=== PATIENT | female | born 1945 | race Caucasian/White ===

== ENCOUNTER 2018-09-30 13:30 | Inpatient (IN) | payer MEDICARE ==
[2018-10-05] MEDS ORDERED: FAMOTIDINE 20MG TABLET PO ONE (06:00)
[2018-10-05] MEDS ORDERED: CEFAZOLIN 1G VIAL IVP ONE (06:00)
[2018-10-05] MEDS ORDERED: WATER STERILE FOR INJECTION 20 ML VIAL MC ONE (06:00)
[2018-10-05] MEDS ORDERED: MECLIZINE 25 MG TABLET PO ONE (06:00)
[2018-10-05] MEDS ORDERED: METOCLOPRAMIDE 10 MG TABLET PO ONE (06:00)
[2018-10-05] MEDS ORDERED: CEFAZOLIN 2 Gram 2 GM/50 ML BAG IVPB SCH (06:00)
[2018-10-05] MEDS ORDERED: RINGERS SOLUTION,LACTATED 1,000 ML IV ONE ×2 (09:20→10:29)
[2018-10-05] MEDS ORDERED: ONDANSETRON HCL IV 4 MG/2 ML VIAL IVP PRN (12:00)
[2018-10-05] MEDS ORDERED: AL HYDROX/MAG HYDROX 30ML UD PO PRN (12:00)
[2018-10-05] MEDS ORDERED: ZOLPIDEM TARTRATE 5 MG TABLET PO PRN (12:00)
[2018-10-05] MEDS ORDERED: ACETAMINOPHEN 325 MG TAB PO PRN (12:00)
[2018-10-05] MEDS ORDERED: TRAMADOL HCL 50 MG TABLET PO PRN (12:00)
[2018-10-05] MEDS ORDERED: DIPHENHYDRAMINE HCL 25 MG CAPSULE PO PRN (12:00)
[2018-10-05] MEDS ORDERED: MAGNESIUM HYDROXIDE 30 ML UDC PO PRN (12:00)
[2018-10-05] MEDS ORDERED: HYDROMORPHONE HCL 2 MG/ML VIAL IV PRN (12:00)
[2018-10-05] MEDS ORDERED: SENNOSIDES/DOCUSATE SODIUM UD CAPSULE PO PRN (12:00)
[2018-10-05] MEDS ORDERED: NALOXONE 0.4 MG/1 ML VIAL IVP PRN (12:00)
[2018-10-05] MEDS ORDERED: METOCLOPRAMIDE HCL 10 MG/2 ML VIAL IVP PRN (12:00)
[2018-10-05] MEDS ORDERED: TRAZODONE 50 MG TABLET PO PRN (12:02)
[2018-10-05] MEDS ORDERED: ROPIVACAINE HCL (NAROPIN) /PF 5MG/ML 20ML VIAL IV ONE (13:48)
[2018-10-05] MEDS ORDERED: DEXAMETHASONE 4 MG/ML 1ML VIAL IVP ONE (13:48)
[2018-10-05] MEDS: OXYCODONE HCL/APAP 5MG/325MG TABLET PO PRN ×3 (13:49→19:58)
[2018-10-05] MEDS ORDERED: TRANEXAMIC ACID 1,000 MG in 0.9 % SODIUM CHLORIDE 100ML 100 ML IVPB ONE (14:00)
[2018-10-05] MEDS: RINGERS SOLUTION,LACTATED 1,000 ML IV SCH (14:38)
[2018-10-05] MEDS ORDERED: TRANEXAMIC ACID 1,000 MG/10 ML ML IV ONE (15:04)
--- NOTE | 2018-10-05 15:12 | Rehab Evaluation ---
Patient Information - Patient Information Diagnosis: OA R knee Ordered Treatment: OT Evaluate and Treat Status: Initial Evaluation Surgery: Yes (R TKA) Date of Surgery: 10/05/18 Past Medical/Surgical Hx: PAST MEDICAL/SURGICAL HISTORY Past Surgical History ARIEL AT AGE 26 HYST 1994 CTR C SCOPES PMH - Respiratory Hx Respiratory Disorders Yes Hx Pneumonia Yes: AGE 26 WITH PLEURISY PMH - Cardiovascular Hx Cardiovascular Disorders Yes Hx Deep Vein Thrombosis Yes: AT AGE 26 AFTER ARIEL AND PNEUMONIA Hx Irregular Heartbeat Yes: TACHYCARDIA ON MEDS WITH GOOD RESULTS Exercise Tolerance Good PMH - Neuro Hx Neurological Disorders Yes Hx Headaches Yes: OCCASSIONALLY PMH - GI Hx Gastrointestinal Disorders Yes Hx Pancreatitis Yes: AT AGE 26 WITH GALLBLADDER PROBLEMS PMH - Hx Genitourinary Disorders Yes Hx Bladder Problem Yes: URGENCY PMH - Endocrine Hx Endocrine Disorders Yes Hx Thyroid Disease Yes: HX OF GRAVES DISEASE HAD RADIATION PMH - Musculoskeletal Hx Musculoskeletal Disorders Yes Hx Arthritis Yes: RIGHT KNEE AND LOW BACK AND CERVICAL Hx Osteoporosis Yes: OSTEOPENIA PMH - Psych Hx Psychiatric Problems Yes Hx Anxiety Yes: R/T UPCOMING SX PMH - Hematology/Oncology Hx Hematology/Oncology No Disorders Premorbid Status: Detail (Pt was indep. with all I/ADLs prior to admit.) Social History: Detail (Pt lives with her grown daughter in a 2-story home with upstairs main bedroom and bathroom. There is 1 step to enter without a handrail. The bathroom is equipped with a tub/shower, shower chair, and hand- held shower hose. Pt reports she may have grab bar installed in the shower. She owns a FWW and single point cane. Pt plans to reside on main floor with half bathroom upon DC until she is able to negotiate stairs) Precautions: [place], Fall, Other (WBAT R LE) - Time With Patient Total Time Spent With Patient (Min): 14 (1 eval) Treatment Procedures: Detail (ot eval: low complexity) Subjective Information - Subjective Information Per Patient (Ok to see per PACO Dean. Pt agreeable to OT eval. Daughter present. ) Objective Data - Pain Pain Present: Yes Pain Scale Used: Numeric (1 - 10) (2/10 R knee) - Mental Status Patient Orientation: Oriented x3 - Visual Perception Appears within normal limits for therapeutic activities - ROM Within normal limits - Strength/Tone Within normal limits - Coordination Appears within normal limits for therapeutic activities - Bed Mobility Independent (supine >< EOB) - Transfers Independent (sit >< stand from low surfaces with FWW) - Balance Balance Sitting: Good Balance Standing: Good - Sensation Intact - Gait Detail (Functional ambulation within bedroom with FWW and supervision) - ADL's/IADL's Detail (OT educ. Pt on adaptive tech for LB dressing, kitchen, laundry, and bathroom safety, Pt verbalizes and demos mod indep.) Therapy Assessment - Therapy Assessment Detail (Pt demos safety and mod I with LB dressing and verbalizes safe tech for home tasks. Rec. DC home with daughter assist PRN upon medical stability.) Problem List - Problem List Occupational Therapy Problem List: Detail (No further inpatient OT needs identified. MA inpatient OT services.) Goals - Goals Occupational Therapy Goals: No further inpatient OT needs/goals identified. MA inpatient OT services. Prognosis - Prognosis Good Plan - Plan Occupational Therapy Plan: No further inpatient OT needs identified. MA inpatient OT services. Thank you for this referral.
--- NOTE | 2018-10-05 15:22 | Rehab Evaluation ---
Patient Information - Patient Information Diagnosis: OA R knee Ordered Treatment: OT Evaluate and Treat Surgery: Yes (R TKA) Date of Surgery: 10/05/18 Past Medical/Surgical Hx: PAST MEDICAL/SURGICAL HISTORY Past Surgical History ARIEL AT AGE 26 HYST 1994 CTR C SCOPES PMH - Respiratory Hx Respiratory Disorders Yes Hx Pneumonia Yes: AGE 26 WITH PLEURISY PMH - Cardiovascular Hx Cardiovascular Disorders Yes Hx Deep Vein Thrombosis Yes: AT AGE 26 AFTER ARIEL AND PNEUMONIA Hx Irregular Heartbeat Yes: TACHYCARDIA ON MEDS WITH GOOD RESULTS Exercise Tolerance Good PMH - Neuro Hx Neurological Disorders Yes Hx Headaches Yes: OCCASSIONALLY PMH - GI Hx Gastrointestinal Disorders Yes Hx Pancreatitis Yes: AT AGE 26 WITH GALLBLADDER PROBLEMS PMH - Hx Genitourinary Disorders Yes Hx Bladder Problem Yes: URGENCY PMH - Endocrine Hx Endocrine Disorders Yes Hx Thyroid Disease Yes: HX OF GRAVES DISEASE HAD RADIATION PMH - Musculoskeletal Hx Musculoskeletal Disorders Yes Hx Arthritis Yes: RIGHT KNEE AND LOW BACK AND CERVICAL Hx Osteoporosis Yes: OSTEOPENIA PMH - Psych Hx Psychiatric Problems Yes Hx Anxiety Yes: R/T UPCOMING SX PMH - Hematology/Oncology Hx Hematology/Oncology No Disorders Premorbid Status: Detail (Pt was indep. with all I/ADLs prior to admit.) Social History: Detail (Pt lives with her grown daughter in a 2-story home with upstairs main bedroom and bathroom. There is 1 step to enter without a handrail. The bathroom is equipped with a tub/shower, shower chair, and hand- held shower hose. Pt reports she may have grab bar installed in the shower. She owns a FWW and single point cane. Pt plans to reside on main floor with half bathroom upon DC until she is able to negotiate stairs) Precautions: Pace, Fall, Other (WBAT R LE) - Time With Patient Treatment Procedures: Detail (Initial Evaluation, gait training) Subjective Information - Subjective Information Per Patient (The patient had no compaitns of pain) Objective Data - Mental Status Patient Orientation: Oriented x3 - Visual Perception Appears within normal limits for therapeutic activities - ROM Not within normal limits (The patient's R knee AROM is limited s/p surgery. All other AROM is WNL.) - Strength/Tone Not within normal limits (The patient's R LE strength was not tested s/p surgery but is functional . L LE strength is WNL.) - Bed Mobility Independent (The patient was independent with supine to and from sit transfer with use of L LE to lift R LE.) - Transfers Independent (The patient was independent with sit to and stand transfer.) - Balance Balance Sitting: Good Balance Standing: Good - Sensation Intact - Gait Detail (The patient ambulated 100 feet x 1 with front wheeled walker WBAT on the R LE with supervision for safety only.) Therapy Assessment - Therapy Assessment Detail (The patient was independent with bed mobility, transfer and ambulation. Feel the patient with progress well with mobiity.) Problem List - Problem List Physical Therapy Problem List: Detail (Decreased R knee AROM s/p surgery and decreased R LE strength) Goals - Goals Physical Therapy Goals: 1) The patient will ambulate on stairs using proper technique with supervision for safety. 2) The patient will be independent with TKA HEP. Prognosis - Prognosis Good Plan - Plan Physical Therapy Plan: PT 1-2 sessions for gait training on stairs and instruction in HEP.
[2018-10-05] MEDS ORDERED: MIDAZOLAM HCL 2MG/2ML VIAL IV ONE (15:58)
[2018-10-05] MEDS ORDERED: LIDOCAINE 2% MDV (20MG/ML) 20ML VIAL IV ONE (15:58)
[2018-10-05] MEDS ORDERED: FENTANYL PF 100MCG/2ML VIAL IV ONE (15:58)
[2018-10-05] MEDS ORDERED: PROPOFOL 10 MG/ML VIAL IV ONE (15:58)
[2018-10-05] MEDS: CEFAZOLIN 1G VIAL IVP SCH (17:01)
[2018-10-05] MEDS ORDERED: PATIENT OWN MED: SIMVASTATIN 20 MG PO SCH (22:00)
[2018-10-05] MEDS: TRAMADOL HCL 50 MG TABLET PO PRN (22:43)
[2018-10-05] MEDS: ASPIRIN 325 MG TAB ENTERIC-COATED PO SCH (22:43)
[2018-10-06] MEDS: CEFAZOLIN 1G VIAL IVP SCH ×2 (01:40→09:27)
[2018-10-06] MEDS: OXYCODONE HCL/APAP 5MG/325MG TABLET PO PRN ×3 (01:47→15:27)
[2018-10-06] MEDS: TRAMADOL HCL 50 MG TABLET PO PRN ×2 (06:57→13:16)
[2018-10-06] MEDS ORDERED: NADOLOL 20 MG PO SCH (07:00)
[2018-10-06] MEDS ORDERED: SYNTHROID 100 MCG PO SCH (07:00)
--- NOTE | 2018-10-06 09:20 | Operative Note ---
DATE OF SURGERY: 10/05/2018 SURGEON: Ritesh Bee DO PREOPERATIVE DIAGNOSIS: Osteoarthritis of the right knee. POSTOPERATIVE DIAGNOSIS: Osteoarthritis of the right knee. OPERATION: Right total knee arthroplasty. DESCRIPTION OF PROCEDURE: This 73-year-old female was taken to the operating room and placed in the supine position on the operating room table. Spinal anesthesia was induced. The right lower extremity was elevated. It was prepped with Hibiclens and draped in the usual sterile fashion, then exsanguinated and the tourniquet inflated to 250 mmHg. An anterior longitudinal midline incision was made followed by a medial parapatellar arthrotomy incision. An intracondylar drill hole was made for the intramedullary alignment iris, and a 5-degree valgus 9 mm cut was made in the distal femur. The wafer of bone was removed. Sizing jig was affixed and size 60 was seen to be the appropriate size. The 4-in-1 cutting block was then pinned in 3 degrees of external rotation. The appropriate cuts were made. We directed our attention to the proximal tibia, and an extramedullary alignment guide was used to cut the proximal tibia referencing a 10 mm cut off the lateral tibial plateau but found to be insufficient and an additional 2 mm was taken. Remnants of the menisci and osteophytes were removed from the posterior aspect of the joint. The tibia was sized to a 67 and the stem punch was used. Trial components were inserted. The patella was then cut and restored to anatomic height with a 34 x 8.5 mm patella. A size 11 tibial bearing was seen to be the appropriate size. The knee was taken through range of motion and found to be stable. The wound was copiously irrigated with lactated Ringer's solution after all trial components had been removed. All bony surfaces were dried. All components were cemented into place and excess cement removed after the insertion of each component. Initially the tibial baseplate was cemented followed by the insertion of the tibial bearing, femoral component inserted, and finally the patella. Once the cement had hardened, the knee was again taken through range of motion and found to be stable. A drain was placed through a separate stab incision, and the arthrotomy incision was closed with a #2 Vicryl. Interrupted #1 TiCron was used to reinforce the stitches, and the subcutaneous tissue was closed with 0 Vicryl. The skin was stapled. The patient was taken to the recovery room in satisfactory condition. GROSS PATHOLOGY: This patient demonstrated severe full-thickness articular cartilage loss noted at the patella, degenerative disease at the medial compartment with severe grade 3 changes noted there as well. Final components inserted were a [employer] size 60 cruciate retaining femur, a 67 tibial baseplate, an 11 mm anterior stabilized bearing, and a 34 x 8.5 mm patella was used. All scrub personnel wore personal isolation suits. CC: Ishaan Merchant MD [facility]
[2018-10-06] MEDS: RINGERS SOLUTION,LACTATED 1,000 ML IV SCH (09:24)
[2018-10-06] MEDS: ASPIRIN 325 MG TAB ENTERIC-COATED PO SCH (09:26)
--- NOTE | 2018-10-06 11:00 | Physical Therapy Tx Note ---
Physical Therapy Tx Note - Treatment Note Tolerated: Good Total Time Spent With Patient: 35 Physical Therapy Tx Note: Detail (Patient states 4/10 pain in right knee. Patient transferred supine to sit indepedently. Patient transferred sit to and from stand CGA x1. Patient ambulated 10 feet with wheeled walker SBA x1. Patient transferred sit to and from stand SBA x1. Patient ambulated 10 feet with wheeled walker SBA x1. Patient transferred sit to and from stand SBA x1. Patient ambulated 260 feet with wheeled walker SBA x1. Patient descended and ascended 3 steps CGA x1 with using handrail and walker. Patient transferred sit to supine independently. Patient performed the following exercises x10 reps each: ankle pumps, quad sets, glut squeezes, heel slides, hamstring sets, and SLR with assist. Patient tolerated treatment well. Patient displays good und erstanding of stair climbing and HEP. Patient was left reclined in bed with call light within reach. Patient discharged from inpatient PT at this time as all goals are met.) Physical Therapy Problem List: Detail (Decreased R knee AROM s/p surgery and decreased R LE strength) Physical Therapy Goals: 1) The patient will ambulate on stairs using proper technique with supervision for safety. 2) The patient will be independent with TKA HEP. Prognosis: Good Physical Therapy Plan: Patient discharged from inpatient PT at this time as all goals are met.
--- NOTE | 2018-10-07 10:00 | Discharge Summary ---
DATE OF ADMISSION: 10/05/2018 DATE OF DISCHARGE: 10/06/2018 ADMITTING DIAGNOSIS: Osteoarthritis of the right knee. DISCHARGE DIAGNOSIS: Osteoarthritis of the right knee. OPERATIVE PROCEDURE: Right total knee arthroplasty. HISTORY OF PRESENT ILLNESS: This 73-year-old female was admitted to the hospital for elective total knee arthroplasty and tolerated the operative procedure well. She progressed satisfactorily with physical therapy. The pain is as expected. She did not demonstrate any evidence of DVT during the course of her hospitalization. She will be discharged on aspirin 325 mg daily for 2 weeks. She was given a prescription for Percocet 5/325 mg, #60, 1 every 4 hours as necessary for pain. She will have home physical therapy for her right knee. Routine wound care instructions were given. I will see her in 2 weeks for staple removal. She will use her GINNY hose during the day and remove them at night. She was instructed to call me should she have any problems prior to being seen. [facility]
== END 2018-10-06 17:50 | disposition home or self-care (01) | DRG 470 ==
LOC: MEDSURG 10-05 09:01
PROVIDERS: ADMIT Orthopaedic Surgery; ATTEND Orthopaedic Surgery
PROC: XR2G021 Monitoring of Right Knee Joint using Intraoperative Knee Replacement Sensor, Open Approach, New Technology Group 1 (ICD-10-PCS; 2018-10-05)
PROC: 0SRC069 Replacement of Right Knee Joint with Oxidized Zirconium on Polyethylene Synthetic Substitute, Cemented, Open Approach (ICD-10-PCS; principal; 2018-10-05 11:00)
DX: M17.11 Unilateral primary osteoarthritis, right knee (principal); E78.00 Pure hypercholesterolemia, unspecified; R00.0 Tachycardia, unspecified; E03.9 Hypothyroidism, unspecified
CPT/HCPCS: 76942; 97110; 97530; J0690; J7120